=== PATIENT | female | born 1985 | race American Indian/Alaskan Native ===

== ENCOUNTER 2018-10-17 20:55 | Inpatient (IN) | payer MEDICAID, OTHER ==
--- NOTE | 2018-10-17 23:23 | ED PDOC ---
HPI: Psych/Substance Abuse Time Seen by Provider: 10/17/18 22:23 Chief Complaint (Nursing): Psychiatric Evaluation Chief Complaint (Provider): psych eval/ abdominal pain History Per: Patient History/Exam Limitations: no limitations Onset/Duration Of Symptoms: Days Current Symptoms Are (Timing): Still Present Suicide/Self Injury Attempted (Context): None Severity: Moderate Pain Scale Rating Of: 6 Associated Symptoms: Suicidal Thoughts Additional History Per: Patient Additional Complaint(s): 33 year old female with a history of bipolar disorder presents to the ED after being discharged from [facility] in [place] for suicidal ideations and abdominal pain. Patient states the abdominal pain started tuesday night in tuesday morning for which she presented to the [facility] for. Patient reports pain is right upper quadrant radiating to right flank. with associated nausea and vomiting. She states she was given a dose of zofran and dilaudid but no imaging was done. She was screened for psych and discharged today from psych unit, even though she was suicidal. [facility] trains and buses she had to take she felt she just wanted to jump in front of them. Patient continues to feel suicidal and she states her plan is "[address] ". She denies drug use except for medical marijuana. Denies homicidal ideations, alcohol use. Additionally she denies fever, diarrhea. Past Medical History Reviewed: Historical Data, Nursing Documentation, Vital Signs Vital Signs: Last Vital Signs Temp 99.1 F 10/17/18 21:03 Pulse 112 H 10/17/18 21:03 Resp 16 10/17/18 21:03 BP 115/73 10/17/18 21:03 Pulse Ox 97 10/17/18 21:03 Primary Care Provider: FAMILY PROVIDER,NO - Medical History PMH: Anxiety, Asthma (exercise induced), Back Problems (Degenerative disc disease), Bipolar Disorder, Cardia Arrhythmia, Depression, Gastritis, Kidney Stones, Multiple Sclerosis, Post Traumatic Stress Disorder, Seizures - Surgical History Surgical History: Back Surgery (C 4-5), Cholecystectomy - Family History Family History: States: Unknown Family Hx - Living Arrangements Living Arrangements: With Family (mother) - Social History Current smoker - smoking cessation education provided: No Alcohol: None Drugs: Cannabis - Immunization History Hx Tetanus Toxoid Vaccination: No Hx Influenza Vaccination: No Hx Pneumococcal Vaccination: No - Home Medications Home Medications: Ambulatory Orders Medication Instructions Recorded Gabapentin [Neurontin] 800 mg PO TID 01/27/17 Lamotrigine [Lamictal Xr] 200 mg PO Q12 01/27/17 Montelukast [Singulair] 10 mg PO DAILY 01/27/17 Pantoprazole Sodium [Protonix] 40 mg PO DAILY 01/27/17 Risperidone [Risperdal] 1 mg PO DAILY 01/27/17 Risperidone [Risperdal] 2 mg PO HS 01/27/17 Gabapentin [Neurontin] 600 mg PO TID #60 tab 02/08/17 Montelukast [Singulair] 10 mg PO HS #30 tab 02/08/17 lamoTRIgine [Lamictal] 100 mg PO BID #60 tab 02/08/17 risperiDONE [RisperDAL Tab] 3 mg PO HS #30 tab 02/08/17 traZODone [Desyrel] 100 mg PO HS PRN #30 tab 02/08/17 - Allergies Allergies/Adverse Reactions: Allergies Allergy/AdvReac Type Severity Reaction Status Date / Time diphenhydramine Allergy RASH Verified 10/17/18 21:01 [From Benadryl] metoclopramide [From Reglan] Allergy RASH Verified 10/17/18 21:01 Penicillins Allergy RASH Verified 10/17/18 21:01 Review of Systems ROS Statement: Except As Marked, All Systems Reviewed And Found Negative Constitutional: Negative for: Fever, Chills, Sweats, Weakness ENT: Positive for: Nose Pain, Mouth Pain, Throat Pain Cardiovascular: Negative for: Chest Pain, Palpitations Respiratory: Negative for: Shortness of Breath, SOB with Exertion Gastrointestinal: Positive for: Nausea, Vomiting, Abdominal Pain. Negative for: Diarrhea Genitourinary Female: Negative for: Dysuria Neurological: Negative for: Headache Psych: Positive for: Suicidal ideation Physical Exam - Reviewed Nursing Documentation Reviewed: Yes (calm and cooperative, pleasant) Vital Signs Reviewed: Yes - Physical Exam Appears: Positive for: Well, Non-toxic, No Acute Distress Head Exam: Positive for: ATRAUMATIC, NORMAL INSPECTION, NORMOCEPHALIC Skin: Positive for: Normal Color, Warm, DRY Eye Exam: Positive for: Normal appearance, PERRL ENT: Positive for: Normal ENT Inspection Neck: Positive for: Normal, Painless ROM, Supple Cardiovascular/Chest: Positive for: Regular Rate, Rhythm. Negative for: Chest Non Tender Respiratory: Positive for: CNT, Normal Breath Sounds Gastrointestinal/Abdominal: Positive for: Normal Exam, Bowel Sounds (normoactive ), Soft, Tenderness (RUQ). Negative for: Distended Back: Positive for: Normal Inspection. Negative for: L CVA Tenderness, R CVA Tenderness Extremity: Positive for: Normal ROM Neurological/Psych: Positive for: Awake, Alert, Normal Tone, Oriented - ECG O2 Sat by Pulse Oximetry: 97 Medical Decision Making Medical Decision Making: --Medical Clearance work-up --US abdominal limited --1:1 -- crisis eval 23:00 Patient endorsed to Shy Antonio to follow-up on course of treatment including US. Once medically cleared patient to be referred to crisis for evaluation. Disposition - Clinical Impression Clinical Impression: Abdominal pain, Bipolar disorder - Patient ED Disposition Is Patient to be Admitted: No - Disposition Disposition: Transfer of Care Disposition Time: 23:00 Condition: STABLE Patient Signed Over To: Shy Fermin Handoff Comments: follow-up on labs and US - POA Present On Arrival: None
[2018-10-17 23:27] LABS: SQUAMOUS EPITHIAL < 1 /hpf (0-5); URINE BILIRUBIN NEGATIVE (NEGATIVE); URINE BLOOD NEGATIVE (NEGATIVE); URINE CLARITY CLEAR (Clear); URINE COLOR STRAW (YELLOW); URINE GLUCOSE (UA) NEG (NEGATIVE); URINE LEUKOCYTE ESTERASE NEG Leu/uL (Negative); URINE PROTEIN NEGATIVE (NEGATIVE); URINE UROBILINOGEN 0.2-1.0 mg/dL (0.2-1.0)
[2018-10-17 23:28] LABS: BASO % 0.7 % (0.0-2.0); EOS % 0.4 % (0.0-4.0); HEMOGLOBIN 11.3 g/dL (12.0-16.0); LYMPH # 2.4 K/uL (1.0-4.3); LYMPH % 33.3 % (20.0-40.0); MEAN CELL VOLUME 85.3 fl (81.0-99.0); MEAN CORPUSCULAR HEMOGLOBIN 28.2 pg (27.0-31.0); MEAN CORPUSCULAR HGB CONC 33.1 g/dL (33.0-37.0); MEAN PLATELET VOLUME 7.9 fl (7.2-11.7); MONO # 0.6 K/uL (0.0-0.8); MONO % 8.7 % (0.0-10.0); NEUT % 56.9 % (50.0-75.0); NRBC % 0.1 % (0.0-0.0); RBC 3.99 Mil/uL (3.80-5.20); RED CELL DISTRIBUTION WIDTH 14.3 % (11.5-14.5); WHITE BLOOD COUNT 7.1 K/uL (4.8-10.8)
[2018-10-17 23:35] LABS: ALB/GLOB RATIO 1.6 (1.0-2.1); ALBUMIN 4.4 g/dL (3.5-5.0); ALT/SGPT 64 U/L (9-52); AST/SGOT 53 U/L (14-36); BLOOD UREA NITROGEN 11 mg/dl (7-17); CALCIUM 8.7 mg/dL (8.4-10.2); GFR NON-AFRICAN AMERICAN > 60; LIPASE 27 U/L (23-300)
[2018-10-17 23:43] LABS: BARBITURATES, UR NEGATIVE (NEGATIVE); BENZODIAZEPINES, UR NEGATIVE (NEGATIVE); OPIATES, UR NEGATIVE (NEGATIVE); PHENCYCLIDINE, UR NEGATIVE (NEGATIVE)
--- NOTE | 2018-10-18 00:40 | ED PDOC ---
- Laboratory Results Result Diagrams: 10/17/18 23:17 10/17/18 23:17 Lab Results: Total Bilirubin 0.6 mg/dl (0.2-1.3) 10/17/18 23:17 AST 53 U/L (14-36) H 10/17/18 23:17 ALT 64 U/L (9-52) H 10/17/18 23:17 Alkaline Phosphatase 75 U/L (38-126) 10/17/18 23:17 Total Protein 7.2 G/DL (6.3-8.2) 10/17/18 23:17 Albumin 4.4 g/dL (3.5-5.0) 10/17/18 23:17 Globulin 2.8 gm/dL (2.2-3.9) 10/17/18 23:17 Albumin/Globulin Ratio 1.6 (1.0-2.1) 10/17/18 23:17 Lipase 27 U/L (23-300) 10/17/18 23:17 Urine Color Straw (YELLOW) 10/17/18 23:17 Urine Clarity Clear (Clear) 10/17/18 23:17 Urine pH 6.0 (5.0-8.0) 10/17/18 23:17 Ur Specific [place] 1.006 (1.003-1.030) 10/17/18 23:17 Urine Protein Negative mg/dL (NEGATIVE) 10/17/18 23:17 Urine Glucose (UA) Neg mg/dL (NEGATIVE) 10/17/18 23:17 Urine Ketones Negative mg/dL (NEGATIVE) 10/17/18 23:17 Urine Blood Negative (NEGATIVE) 10/17/18 23:17 Urine Nitrate Negative (NEGATIVE) 10/17/18 23:17 Urine Bilirubin Negative (NEGATIVE) 10/17/18 23:17 Urine Urobilinogen 0.2-1.0 mg/dL (0.2-1.0) 10/17/18 23:17 Ur Leukocyte Esterase Neg Demetri/uL (Negative) 10/17/18 23:17 Urine RBC (Auto) < 1 /hpf (0-3) 10/17/18 23:17 Urine Microscopic WBC 1 /hpf (0-5) 10/17/18 23:17 Ur Squamous Epith Cells < 1 /hpf (0-5) 05/28/19 23:17 - ECG ECG: Positive for: Viewed By Ma ECG Rhythm: Positive for: Sinus Rhythm O2 Sat by Pulse Oximetry: 97 Pulse Ox Interpretation: Normal - Radiology X-Ray: Viewed By Ma X-Ray Interpretation: No Acute Disease - Progress ED Course And Treament: Case endorsed to chart writer from [place] pending u/s, crisis eval EXAM: US Abdomen, Right Upper Quadrant. CLINICAL HISTORY: Ruq pain TECHNIQUE: Right upper quadrant sonography performed with image documentation. COMPARISON: None provided. FINDINGS: LIVER: The liver is normal in size and echogenicity. Portal vein demonstrates hepatopetal flow. GALLBLADDER: The patient is status post cholecystectomy. Common bile duct measures 0.7 cm, slightly prominent although within normal limits for post cholecystectomy patient. COMMON BILE DUCT: No dilation. PANCREAS: Pancreas has a normal sonographic appearance. RIGHT KIDNEY: Right kidney has a normal appearance without hydronephrosis, mass, cyst calculi. MISCELLANEOUS: Visualized aorta and IVC appear unremarkable. IMPRESSION: 1. The liver is normal in size and echogenicity. 2. The patient is status post cholecystectomy. 3. Common bile duct measures 0.7 cm, slightly prominent although within normal limits for a post-cholecystectomy patient. 4. Pancreas has a normal sonographic appearance. 5. Visualized aorta and IVC appear unremarkable. 6. Right kidney has a normal appearance without hydronephrosis, mass, cyst calculi. 7. Portal vein demonstrates hepatopetal flow Patient educated on u/s findings; states she always is told she has a "slightly dilated common bile duct". Patient states she has had this pain intermittently since her gallbladder was removed in 2010; has not been able to see a GI doctor in a while due to living situation. Patient tolerated PO. Patient evaluated by worker's compensation claims examiner; to be admitted as per Dr. Montes Medical Decision Making Medical Decision Making: Patient medically stable for psych admission Disposition - Clinical Impression Clinical Impression: Abdominal pain, Bipolar disorder - POA Present On Arrival: None - Disposition Disposition: Admitted as In-Patient Disposition Time: 02:45 Condition: STABLE
[2018-10-18] MEDS ORDERED: Potassium Chloride 20 mEq ER Tab PO ONE (01:12)
[2018-10-18 03:56] VITALS: O2SAT 97
[2018-10-18] MEDS ORDERED: Alum-Mag Hydrox-Simethicone Susp (30 mL) PO PRN (04:11)
--- NOTE | 2018-10-18 04:28 | PCM.BM ---
<Adele Alejo Keily - Last Filed: 10/18/18 04:26> Treatment Plan Problems - Problems identified on initial assessmt Suicidal Ideation Date Initiated: 10/18/18 Time Initiated: 04: Assessment reference: NA Status: Active Hopelessness/Helplessness Date Initiated: 10/18/18 Time Initiated: 04: Assessment reference: NA Status: Active Treatment assets and liabiliti Patient Assests: cooperative, ADL independent, negotiates basic needs, cognitively intact Patient Liabilities: poor support system, medical problems - Milieu Protocol Maintain good personal hygiene: daily Encourage regular showers, other Remind patient to perform daily oral care (prn), other Assist patient to perform ADL's (prn) Conduct patient checks and document Observation sheet: Q15 minutes Maintain personal safety: every shift Educate patient to report safety concerns to staff, every shift Monitor environment for contraband/sharps Medication safety: Monitor for expected outcome, potential side effects: every shift, Assess barriers to learning: every shift, Assess readiness for medication education: every shift <Linda Elder - Last Filed: 10/19/18 11:26> Treatment assets and liabiliti Patient Assests: adapts well, cooperative, educated (Pt. reports having a psychology degree. As per medical records prior [facility] admission, pt. reported having a high school education. ), resourceful, self-reliant, ADL independent, good support system (Pt. identifies father as primary support. Pt. reports that her girlfriend was her primary support until dying of an accidental OD in 04/2018. ), negotiates basic needs, cognitively intact Patient Liabilities: live alone (Pt. reports currently residing with mother and identifies this as a stressor.), relationship conflicts (Pt. reports significant discord with mother, describing mother as a sick narcissist. ), substance abuse (Pt. reports hx of crack cocaine abuse. Pt. denies abstinence since 2017. Pt. reports frequent medical marijuana use secondary to medical dxs. Toxicology positive for cannabis. ), medical problems (Pt. reports extensive medical conditions and allergies. Pt. identifies medical conditions as primary stressor contributing to acute onset of sxs. Please see H&P. ), legal issue (Pt. reports being arrested in 2017 for solicitation, explaining this is how she and her girlfriend supported themselves. Pt. denies outstanding legal issues. ) Family Contact - Goals for Treatment Patient goals for treatment: Patient to continue stabilization on 3NP through medication management and group/supportive therapy to address sxs of depression as exhibited by intrusive SI, sleep disturbances, and poor appetite, and eliminate SI. Patient to be encouraged to attend groups regularly to promote self-awareness/coping skills, improve insight/adherence, and maintain sobriety. Patient to be provided with referral for appropriate level of aftercare to reduce risk of future hospitalizations and ensure safety in the community. Pt. identifies elimination of SI as primary tx goal. Discharge/Continuing Care - Education Needs Education Needs: Patient Medication, Patient Diagnosis/Disease Process, Patient Coping Skills, Patient Community resources, Patient Aftercare Safety Plan - Discharge Discharge Criteria: Tolerates medication w/o severe side effects, Free of Suicidal thoughts, Normal sleep pattern, Ability to care for self Discharge to:: Home, With Family <Gabriel Urias - Last Filed: 10/20/18 16:21> Discharge/Continuing Care - Treatment Team Participation Patient/Family/SO Statement: 10/20/18 16:22 Pt seen in treatment team on 10/20/18 from 1125 until 1136. Pt presented as calm and cooperative. Pt made appropriate eye contact and was neat and clean and dressed in street close. Pt's mood and affect were broad. Pt denied SI/HI and AVT hallucinations. Pt is oriented X4. Pt denied sleep/appetite disturbances. Pt is very visible on the unit and is often observed communicating with peers and staff. Pt's insight and judgment are fair to poor. Pt's psychomotor movements are within normal limits. Pt's speech was at a normal rate and tone and her thought process and content was logical and goal oriented. Referral to [facility] discussed. Pt asked Dr. Elizabeth to change her seizure medications yet did not ultimately feel comfortable as pt has not seen a neurologist in over a year. Pt discussed past medications she has been on for seizure disorder and MS. Risperdal and Cogentin discussed. Discharge for 10/23/18 discussed and pt reported no issues. Discussed with Family/SO: No Was Patient/Family/SO present at Treatment Team Meeting: Yes <Alo Elizabeth - Last Filed: 10/23/18 08:51> - Diagnosis (1) Bipolar disorder Status: Acute Interventions: start mood stabilizer, psychotherapy 10/23/18 08:51
[2018-10-18] MEDS ORDERED: PREDNISONE 10 MG PO SCH (09:00)
[2018-10-18] MEDS ORDERED: LAMOTRIGINE 100 MG PO SCH (09:00)
[2018-10-18] MEDS ORDERED: CARBAMAZEPINE 200 MG PO SCH (09:00)
--- NOTE | 2018-10-18 10:38 | CARD ---
APPROVED REPORT Date of service: 10/18/2018 EKG Measurement Heart [id number] <Conclusion> Normal sinus rhythm Normal ECG
--- NOTE | 2018-10-18 11:29 | RAD ---
Date of service: 10/17/2018 HISTORY: medical clearance COMPARISON: No prior. FINDINGS: LUNGS: No active pulmonary disease. PLEURA: No significant pleural effusion identified, no pneumothorax apparent. CARDIOVASCULAR: No atherosclerotic calcification present Normal. OSSEOUS STRUCTURES: No significant abnormalities. VISUALIZED UPPER ABDOMEN: Normal. OTHER FINDINGS: None. IMPRESSION: No active disease.
--- NOTE | 2018-10-18 13:16 | US ---
Date of service: 10/17/2018 HISTORY: Right upper quadrant pain COMPARISON: None. TECHNIQUE: Sonographic evaluation of the right upper quadrant of the abdomen. FINDINGS: LIVER: Measures 13.6 cm in length. Liver exhibits smooth contour and normal echotexture.. No mass. No intrahepatic bile duct dilatation. Hepatopetal flow seen in the portal vein GALLBLADDER: Cholecystectomy. COMMON BILE DUCT: Measures 7.0 mm. No stones. No dilatation. PANCREAS: Unremarkable as visualized. No mass. No ductal dilatation. RIGHT KIDNEY: Measures 11.0 x 3.9 x 4.5 cm in length. Normal echogenicity. No calculus, mass, or hydronephrosis. AORTA: No aneurysmal dilatation. IVC: Unremarkable. OTHER FINDINGS: None . IMPRESSION: Cholecystectomy. Slight prominence of the common bile duct likely due to post cholecystectomy status.
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
[2018-10-18] MEDS: Magnesium Hydroxide Susp 30 ml UD PO PRN (21:07)
[2018-10-19 09:32] LABS: BLOOD UREA NITROGEN 11 mg/dl (7-17); CALCIUM 8.8 mg/dL (8.4-10.2); GFR NON-AFRICAN AMERICAN > 60; HDL CHOLESTEROL 41 MG/DL (30-70)
[2018-10-19 09:42] LABS: LDL CHOLESTEROL 80 mg/dL (0-129)
--- NOTE | 2018-10-19 11:00 | PCM.PYCHPN ---
Psychiatric Progress Note - Psychiatric Progress Note Patient seen today, length of contact: pt evaluated discussed with team chart reviewed Patient Chief Complaint: I know I need therapy Problems Identified/Issues Discussed: pt on evaluation, continues to report, I think i am having a mixed episode, describing it as having frequent mood swings , presenting with labile affect, discussed increasing dose of lamictal gradually, discussed with pt Alexsander Travis syndrome and importance of reporting any rash with increasing the lamotrigine, encouraged pt to attend groups, pt denied any current active thoughts of self harm on the unit Medical Problems: multiple hospitalizations since age 14 DSM 5 Symptoms Update: bipolar disorder' borderline personality disorder Medication Change: Yes (increase lamictal) Medical Record Reviewed: Yes Mental Status Examination - Cognitive Function Orientation: Person, Place Attention: WNL Concentration: WNL Association: WNL Fund of Knowledge: WN Decription of patient's judgement and insights: partial insight, poor judgment - Mood Mood: Depressed, Anxious - Affect Affect: Constricted, Depressed - Speech Speech: Appropriate - Formal Thought Process Formal Thought Process: Circumstantial - Suicidal Ideation Suicidal Ideation: No - Homicidal Ideation Homicidal Ideation: No Goal/Treatment Plan - Goal/Treatment Plan Need for Continued Stay: Severe depression anxiety, Discharge may exacerbated symptoms Progress Toward Problem(s) and Goals/Treatment Plan: risperdal 2mg qhs increase lamictal 200mg daily and 25mg qhs cbt group and supportive therapy
--- NOTE | 2018-10-20 14:19 | PCM.PYCHPN ---
Psychiatric Progress Note - Psychiatric Progress Note Patient seen today, length of contact: pt evaluated discussed with team chart reviewed Patient Chief Complaint: I had an outburst yesterday Problems Identified/Issues Discussed: pt evaluated with treatment team, continues to report labile affect with episodes of agitation and poor impulse control, discussed with pt healthy coping skills and avoiding acting out also discussed increasing dose of risperidone for further mood stabilization, no reported rash with the increase in lamictal pt noted to have no changes in sleep or appetite, socializing with other patients , denied suicidal or homicidal ideation, denied perceptual disturbances Medical Problems: multiple hospitalizations since age 14 DSM 5 Symptoms Update: bipolar i disorder borderline personality disorder Medication Change: Yes (increase risperidone ) Medical Record Reviewed: Yes Mental Status Examination - Cognitive Function Orientation: Person, Place Attention: WNL Concentration: WNL Association: WNL Fund of Knowledge: WN Decription of patient's judgement and insights: partial insight, poor judgment - Mood Mood: Depressed, Anxious - Affect Affect: Constricted, Depressed - Speech Speech: Appropriate - Formal Thought Process Formal Thought Process: Circumstantial - Suicidal Ideation Suicidal Ideation: No - Homicidal Ideation Homicidal Ideation: No Goal/Treatment Plan - Goal/Treatment Plan Need for Continued Stay: Severe depression anxiety, Discharge may exacerbated symptoms Progress Toward Problem(s) and Goals/Treatment Plan: increase risperdal 2mg qhs and 1mg daily lamictal 200mg daily and 25mg qhs cbt group and supportive therapy
[2018-10-20] MEDS: Magnesium Hydroxide Susp 30 ml UD PO PRN (19:12)
--- NOTE | 2018-10-21 13:48 | PCM.PYCHPN ---
Psychiatric Progress Note - Psychiatric Progress Note Patient seen today, length of contact: pt evaluated discussed with team chart reviewed Patient Chief Complaint: came into hospital was feeling overwhelmed, feeling depressed , racing thoughts, reportedly two years ago, pt admits has had multiple hospitalizations, for both psychiatric and medical reasons, reports being on multiple medications. admits history of bipolar I and borderline personality disorder reports that in late afternoon early evening become irritable reports that is not reportedly related to being "mad" says what is on her mind. staff report pt was irritable in late afternoon, coming to window raising voice, pt reports slept a little better, discussed tegretal vs trileptal Problems Identified/Issues Discussed: alteration in mood, coping Medical Problems: per chart Diagnostic Results: per chart per being followed medical team DSM 5 Symptoms Update: some what improved mood Medication Change: No Medical Record Reviewed: Yes Consults ordered or reviewed: pt being followed by medical team Mental Status Examination - Cognitive Function Orientation: Person, Place Attention: WNL Concentration: WNL Association: WNL Fund of Knowledge: WN Decription of patient's judgement and insights: impaired - Mood Mood: Depressed, Anxious - Affect Affect: Constricted, Depressed - Speech Speech: Appropriate - Formal Thought Process Formal Thought Process: Circumstantial - Suicidal Ideation Suicidal Ideation: No - Homicidal Ideation Homicidal Ideation: No Goal/Treatment Plan - Goal/Treatment Plan Need for Continued Stay: Severe depression anxiety, Discharge may exacerbated symptoms Progress Toward Problem(s) and Goals/Treatment Plan: inpt milieu vital signs and clinical observation per protocol and per clinical status pt being followed by medical team adjust meds per clinical status discharge planning in process Estimated Date of D/C: 10/27/18 - Smoking Cessation Smoking Cessation Initiated: No Reason for not providing: pt defers
--- NOTE | 2018-10-22 22:48 | PCM.PYCHPN ---
Psychiatric Progress Note - Psychiatric Progress Note Patient seen today, length of contact: pt evaluated discussed with team chart reviewed Patient Chief Complaint: seen walking in milieu with select peer, reports slept better, mood is last irritable, staff report appears calmer rx adherent. pt reports some somnolence with tegretol reflects past taking of trileptal review can discuss [facility] treatment team in am. reports is planning to follow up at [facility] reported as positive. Problems Identified/Issues Discussed: alteration in mood, coping lability in mood improving Medical Problems: per chart Diagnostic Results: per chart per being followed medical team DSM 5 Symptoms Update: less reported irritability mood improved sleep Medication Change: No Medical Record Reviewed: Yes Consults ordered or reviewed: pt being followed by medical team Mental Status Examination - Cognitive Function Orientation: Person, Place Attention: WNL Concentration: WNL Association: WNL Fund of Knowledge: WNL Decription of patient's judgement and insights: improving - Mood Additional comments: less anxious less depressed reports feels as though current regimen is helping to think before reacting - Affect Affect: Constricted, Depressed - Speech Speech: Appropriate - Formal Thought Process Formal Thought Process: Circumstantial Psychotic Thoughts and Behaviors: less as compared to previous interaction - Suicidal Ideation Suicidal Ideation: No - Homicidal Ideation Homicidal Ideation: No Goal/Treatment Plan - Goal/Treatment Plan Need for Continued Stay: Severe depression anxiety, Discharge may exacerbated symptoms Progress Toward Problem(s) and Goals/Treatment Plan: inpt milieu vital signs and clinical observation per protocol and per clinical status pt being followed by medical team adjust meds per clinical status pt request to speak with team in am related to possibility of taking regular tegretol 400mg po hs discharge planning in process Estimated Date of D/C: 10/27/18 - Smoking Cessation Smoking Cessation Initiated: No Reason for not providing: pt defers
[2018-10-23 08:45] VITALS: BP 114/74; PULSE 91
--- NOTE | 2018-10-23 09:02 | PCM.PYCHDC ---
Mental Status Examination - Mental Status Examination Orientation: Person, Situation Memory: Intact Mood: Neutral Affect: Broad Speech: Appropriate Attention: WNL Concentration: WNL Association: WNL Fund of Knowledge: WNL Formal Thought Process: No Impairment Description of patient's judgement and insight: partial insight, poor judgment Psychotic Thoughts and Behaviors: pt denied psychotic symptoms, non elicited Suicidal Ideation: No Current Homicidal Ideation?: No Discharge Summary - Discharge Note Reason for Hospitalization: pt is 33 ys old female with previous diagnosis of bipolar disorder presented to ER with suicidal ideation with plan to jump infront of a train pt recently discharged from [facility], reported has been increasingly depressed in the context of having multiple medical problems and also having conflicts with her mother whom she lives with on the unit pt reported having mood swings, labile affect, passive suicidal ideation without active plan , denied perceptual disturbances, denied homicida ideation Consultations:: List each consultation separately and include: 1. Reason for request. 2. Findings. 3. Follow-up Summary of Hospital Course include:: 1. Description of specific treatment plan utilized for patients during their course of treatmen. 2. Summarize the time- course for resolution of acute symptoms and/or regressed behaviors. 3. Describe issues identified and worked on during hospitalization. 4. Describe medication utilized. 5. Describe medical problems identified and treated. 6. Reassessment of suicide risk Summary of Hospital Course: pt on admission presented with labile mood and affect, mood swings, passive suicidal ideation pt was placed on lamotrigine it was increased to 225 mg, no reported rash or any other side effects pt was also placed on risperidone for mood stabilization and neurontin for anxiety Internal medicine requested for management of seizure disorder and pain symptoms, related to MS patient was compliant with treatment, attended groups, no reported side effects of medications, on discharge mental status was stable, pt denied any current suicidal or homicidal ideation denied perceptual disturbances - Diagnosis (1) Bipolar disorder Current Visit: Yes Status: Acute - Final Diagnosis (DSM 5) Condition upon Discharge: STABLE DSM 5: bipolar I disorder MRE mixed severe without psychotic features borderline personality disorder Disposition: HOME/ ROUTINE Follow-up Treatment Plan: [facility] program Prescriptions/Medication Reconciliation: Benztropine [Cogentin] 1 mg PO DAILY 30 Days #30 tab Benztropine [Cogentin] 1 mg PO HS 30 Days #30 tab carBAMazepine [TEGretol-XR] 200 mg PO Q12 30 Days #60 ter Gabapentin [Neurontin] 100 mg PO TID 30 Days #90 cap lamoTRIgine [Lamictal] 200 mg PO DAILY 30 Days #60 tab lamoTRIgine [Lamictal] 25 mg PO HS 30 Days #30 tab risperiDONE [RisperDAL Tab] 1 mg PO DAILY 30 Days #30 tab risperiDONE [RisperDAL Tab] 2 mg PO HS 30 Days #30 tab - Antipsychotic Medications Pt discharged on 2 or more routine antipsychotic medications: No
[2018-10-23 09:03] VITALS: RESP 20; TEMP 98.8
== END 2018-10-23 13:45 | disposition home or self-care (01) | DRG 430 ==
LOC: H.ER 20:55 → H.ERHOLD 10-18 02:53 → H.PSYCH 10-18 04:09
PROVIDERS: ADMIT Psychiatry & Neurology Psychiatry; ATTEND Psychiatry & Neurology Psychiatry
PROC: GZHZZZZ Group Psychotherapy (ICD-10-PCS; principal; 2018-10-18)
PROC: GZ51ZZZ Individual Psychotherapy, Behavioral (ICD-10-PCS; 2018-10-18)
PROC: GZ56ZZZ Individual Psychotherapy, Supportive (ICD-10-PCS; 2018-10-18)
DX: F31.63 Bipolar disorder, current episode mixed, severe, without psychotic features (principal); G35 Multiple sclerosis; F60.3 Borderline personality disorder; F43.10 Post-traumatic stress disorder, unspecified; G40.909 Epilepsy, unspecified, not intractable, without status epilepticus; J45.909 Unspecified asthma, uncomplicated; R45.851 Suicidal ideations; Z87.442 Personal history of urinary calculi; F17.210 Nicotine dependence, cigarettes, uncomplicated; Z90.49 Acquired absence of other specified parts of digestive tract; Z86.19 Personal history of other infectious and parasitic diseases; F12.10 Cannabis abuse, uncomplicated; F32.9 Major depressive disorder, single episode, unspecified; F41.9 Anxiety disorder, unspecified; K29.70 Gastritis, unspecified, without bleeding; K59.00 Constipation, unspecified; M19.90 Unspecified osteoarthritis, unspecified site; Z79.899 Other long term (current) drug therapy